=== PATIENT | female | born 1960 | race African-American/Black ===

== ENCOUNTER 2018-12-23 05:43 | Inpatient (IN) | payer OTHER ==
--- NOTE | 2018-12-19 13:32 | NUR ---
*-*- INSURANCE INFORMATION FOR CASE MANAGEMENT *-* OVER HAULER HELPER Kim Ricky [phone] NURSE LOOM TECHNICIAN NCM Assigned Jean Pierre Capellan RN [phone]
[~2018-12-23] VITALS: Ht 161.3 cm; Wt 92.2 kg
[2018-12-23] VITALS (17 sets, daily range): BP systolic 100–143; BP diastolic 55–78
[~2018-12-23 05:43] MED LIST: ASPIR 8181 MG ORAL; ATENOLOL50 MG ORAL; ATORVASTATIN CA40 MG ORAL; GLIPIZIDE5 MG ORAL; HUMULIN N100 UNIT/1 SUBQ; LOSARTAN POTASS50 MG ORAL; SPIRONOLACTONE100 MG ORAL
--- NOTE | 2018-12-23 06:20 | NUR ---
IV LR WAS STARTED BY MICHELLE HERRMANN RN. NO S/S OF INFILTRATION.
[2018-12-23] MEDS ORDERED: NS Irrig 2000ml IRRIG ONE (07:02)
[2018-12-23] MEDS ORDERED: Lidocaine 1% MPF 10mg/ml 5ml ONE ×4 (07:03→09:39)
[2018-12-23] MEDS ORDERED: Sodium Chloride 10ml vial INJ ONE ×2 (07:03→07:07)
[2018-12-23] MEDS ORDERED: LR 1000ml 1,000 ML IVLG SCH (07:06)
--- NOTE | 2018-12-23 07:06 | Pre-Procedure Note/Attestation ---
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 Indications for Procedure Pre-Operative Diagnosis: End Stage Degenerative Joint Disease Right Knee Attestation I attest that I discussed the nature of the procedure; its benefits; risks and complications; and alternatives (and the risks and benefits of such alternatives ), prior to the procedure, with the patient (or the patient's legal sales representative printing supplies). I attest that, if there was a reasonable possibility of needing a blood transfusion, the patient (or the patient's legal sales representative printing supplies) was given the [place] Department [employer] Services standardized written summary, pursuant to the Ez Joanne Blood Safety Act ([place] Health and Safety Code # 1645, as amended). I attest that I re-evaluated the patient just prior to the surgery and that there has been no change in the patient's H&P, except as documented below: Mateusz Matias Dec 23, 2018 07:06
--- NOTE | 2018-12-23 07:10 | Anethesia Preoperative Eval ---
Anesthesia Pre-op PMH/ROS General Date of Evaluation: Dec 23, 2018 Time of Evaluation: 07:24 Anesthesiologist: Donna ASA Score: ASA 3 Mallampati Score Class I : Soft palate, uvula, fauces, pillars visible Class II: Soft palate, uvula, fauces visible Class III: Soft palate, base of uvula visible Class IV: Only hard plate visible Mallampati Classification: Class II Surgeon: Dev Diagnosis: R Knee Pain Surgical Procedure: R Knee Total Arthroplasty Anesthesia History: none Family History: no anesthesia problems Allergies: Coded Allergies: CODEINE (Verified Adverse Reaction, Severe, severe abdominal discomfort, ) Medications: see eMAR Patient NPO?: Yes NPO Date: Dec 22, 2018 NPO Time: 0 Past Medical History Cardiovascular: Reports: HTN, other - HL Pulmonary: Reports: asthma Endocrine: Reports: DM Musculoskeletal/Integumentary: Reports: other - Osteomylitis Other: obesity - BMI 37 PSxH Narrative: R Ankle SX, GABRIELLA-BSO Anesthesia Pre-op Phys. Exam Physician Exam Last Vital Signs Date Time Temp Pulse Resp B/P (MAP) Pulse Ox O2 Delivery O2 Flow Rate FiO2 12/23/18 06:40 97.5 64 20 111/68 (82) 12/23/18 06:28 Room Air Constitutional: NAD Neurologic: CN 2-12 intact Cardiovascular: RRR Respiratory: CTA Gastrointestinal: S/NT/ND Airway Exam Mallampati Score: Class II MO: full ROM: full Teeth: missing, intact Anesthesia Pre-op A/P Risk Assessment & Plan Assessment: ASA 3 Plan: GA, SED, Spinal Status Change Before Surgery: No Pre-Antibiotics Dru Grams Ancef IV Given Within 1 Hr of Incision: Yes Time Given: 07:46 John Thompson MD Dec 23, 2018 07:10
[2018-12-23] MEDS ORDERED: NeoSporin Gu Irrig 1ml Amp IRRIG ONE (07:11)
[2018-12-23] MEDS ORDERED: Bacitracin 50000 Units Vial ONE (07:11)
[2018-12-23] MEDS ORDERED: fentaNYL 100 mcg/2 mL IV PRN (07:15)
[2018-12-23] MEDS ORDERED: Meperidine 50mg/ml Inj(FOR RIGORS ONLY) IVP PRN (07:15)
[2018-12-23] MEDS ORDERED: DiphenhydrAMINE 50mg/ml Inj IVP PRN (07:15)
[2018-12-23] MEDS ORDERED: Ketorolac 30mg Inj IV PRN ×2 (07:15)
[2018-12-23] MEDS ORDERED: Labetalol 5mg/ml 20ml vial IV PRN (07:15)
[2018-12-23] MEDS ORDERED: Metoclopramide 10mg/2ml Inj IVP PRN (07:15)
[2018-12-23] MEDS ORDERED: Midazolam 2mg/2ml Inj IVP PRN (07:15)
[2018-12-23] MEDS ORDERED: Atropine Sulfate 0.4mg/ml inj IVP PRN (07:15)
[2018-12-23] MEDS ORDERED: LORazepam Inj 2mg/ml 1ml IV PRN (07:15)
[2018-12-23] MEDS ORDERED: EPINEPHrine 1mg/1ml Amp ONE (07:18)
[2018-12-23] MEDS ORDERED: Duramorph PF 5mg/10ml amp ONE (07:19)
[2018-12-23] MEDS ORDERED: Bupivacaine 0.5% Inj 30 ml vial INJ ONE (07:19)
[2018-12-23] MEDS ORDERED: Propofol 1,000mg/ 100ml btl IV ONE (07:30)
[2018-12-23] MEDS ORDERED: LR 1000ml ONE (07:30)
--- NOTE | 2018-12-23 07:30 | Immediate Post-Op Evaluation ---
Immediate Post-Op Evalulation Immediate Post-Op Evalulation Procedure: R Knee Total Arthroplasty Date of Evaluation: Dec 23, 2018 Time of Evaluation: 10:27 IV Fluids: 1000 LR Blood Products: 0 Estimated Blood Loss: 75 Urinary Output: 150 Blood Pressure Systolic: 103 Blood Pressure Diastolic: 69 Pulse Rate: 74 Respiratory Rate: 16 O2 Sat by Pulse Oximetry: 100 Temperature (Fahrenheit): 97.2 Pain Score (1-10): 2 Nausea: No Vomiting: No Complications 0 Patient Status: awake, reacts, patent, extubated, none Hydration Status: adequate Dru Grams Ancef IV Given Within 1 Hr of Incision: Yes Time Given: 07:46 John Thompson MD Dec 23, 2018 07:30
[2018-12-23] MEDS ORDERED: Lidocaine 1% Plain 30 ml INJ ONE (07:49)
[2018-12-23] MEDS ORDERED: ePHEDrine 50mg/ml Inj ONE (07:57)
[2018-12-23] MEDS ORDERED: Naloxone 0.4mg/ml Inj IV PRN (10:00)
[2018-12-23] MEDS ORDERED: Milk of Magnesia 30ml Ud ORAL PRN (10:15)
[2018-12-23] MEDS ORDERED: HYDROcodone/Acetamin 7.5/325 tab ORAL PRN (10:15)
[2018-12-23] MEDS ORDERED: PCA HYDROmorphone 1mg/ml 30 ML IV PRN ×2 (10:15)
[2018-12-23] MEDS ORDERED: HYDROmorphone 1mg/ml Carpuject SUBQ PRN (10:15)
--- NOTE | 2018-12-23 10:18 | Operative Note - PDOC ---
Operative Note Operative Note Date of Operation/Procedure: Dec 23, 2018 Pre-op Diagnosis: End Stage Degenerative Joint Disease Right Knee Procedure: Right TKR Post-op Diagnosis: same as pre-op Operative Findings: consistent w/pre-op dx studies Surgeon: Dev Rehab Office Coordinator: JOSH Matias Anesthesiologist: Sidney Vera Anesthesia: other - spinal Specimen: yes Complications: none Condition: stable Estimated Blood Loss: minimal Drains: hemovac Implant(s) used?: Yes - Chary natural knee Mateusz Matias Dec 23, 2018 10:18
[2018-12-23] MEDS ORDERED: PCA Education Pamphlet MISC ONE (11:00)
[2018-12-23] MEDS ORDERED: Rate Change PCA 1 Each MISC PRN (11:00)
--- NOTE | 2018-12-23 11:35 | NUR ---
NURSE NOTES: Hemovac clamped per order. Will endorse to shift foreman nurse to un-clamp at 1935.
--- NOTE | 2018-12-23 11:45 | NUR ---
NURSE NOTES: Patient arrived to unit at 1135 accompanied by RN. Received report from Isabelle Cheung RN. Patient is asleep, but arousable to voice. No acute distress noted, RR even and unlabored. On 2L NC. Right knee dressing clean, dry, intact, ice pack on right knee. Patient reports she is having some numbness in lower extremities, but is able to move toes and can feel touch. Per report, patient was given spinal block during surgery. Bowden to gravity drainage, draining clean yellow urine. NUTRITION TEACHER settings checked and verified against order. Patient educated in use of NUTRITION TEACHER. Side rails upx3, bed low and locked, call light in reach. Will continue to monitor.
--- NOTE | 2018-12-23 12:00 | NUR ---
NURSE NOTES: Patient reporting she is nauseous, had emesis x1.
[2018-12-23 12:40] LABS: BASOPHILS % (AUTO) 0.7 % (0.0-2.0); EOSINOPHILS % (AUTO) 0.8 % (0.0-3.0); HEMATOCRIT 33.7 % (37.0-47.0); HEMOGLOBIN 11.2 G/DL (12.0-16.0); LYMPHOCYTES % (AUTO) 24.7 % (20.0-45.0); MEAN CORPUSCULAR VOLUME 79 FL (80-99); MONOCYTES % (AUTO) 7.1 % (1.0-10.0); NEUTROPHILS % (AUTO) 66.7 % (45.0-75.0); PLATELET COUNT 209 K/UL (150-450); RED BLOOD COUNT 4.25 M/UL (4.20-5.40); RED CELL DISTRIBUTION WIDTH 14.5 % (11.6-14.8); WHITE BLOOD COUNT 12.4 K/UL (4.8-10.8)
[2018-12-23] MEDS: Docusate 100mg cap ORAL SCH ×2 (13:00→18:00)
[2018-12-23] MEDS ORDERED: D5 1/2NS w/KCl 20mEq 1,000 ML IV SCH (13:00)
--- NOTE | 2018-12-23 14:21 | Diagnostic Imaging Report ---
Indications: Postoperative, status post knee replacement Technique: Two views of the right knee Comparison: None Findings: Two postoperative views of the right knee demonstrate total knee arthroplasty, good anatomic alignment of the prosthesis. There is a surgical drain in place. . There is postsurgical soft tissue air. Overlying skin mickie. Impression: Postoperative right knee, no unusual features.
--- NOTE | 2018-12-23 14:48 | NUR ---
NURSE NOTES: Noted patient started bleeding from back of knee following application of CPM. Called NILESH Matias and informed PA. Received orders and entered. Will carry out.
--- NOTE | 2018-12-23 15:44 | NUR ---
NURSE NOTES: Dressing re-inforced, right leg elevated and knee iced per order. CPM will be discontinued until tomorrow morning as ordered.
--- NOTE | 2018-12-23 15:55 | NUR ---
CASE MANAGEMENT:REVIEW 58 YR OLD FEMALE HERE FOR ELECTIVE SURGERY SI: END STAGE DEGENERATIVE RT KNEE JOINT DISEASE 97.5 64 20 111/68 100% ON RA WBC+12.4 IS: TO SURGERY FOR: RT TOTAL KNEE REPLACEMENT IV ANCEF Q8HRS IVF@75/HR : MED/SURG SURG STATUS 3 [facility]
--- NOTE | 2018-12-23 16:00 | NUR ---
NURSE NOTES: Patient had second episode of emesis. Is tolerating ice chips. Will keep on clear liquid diet for now.
--- NOTE | 2018-12-23 16:15 | Operative Note - Dictated ---
DATE OF OPERATION: 12/23/2018 SURGEON: Mateusz Méndez M.D. PANTS CLOSER: NILESH Kohler. ANESTHESIOLOGIST: John Thompson M.D. ANESTHESIA: General and spinal block. PREOPERATIVE DIAGNOSIS: Tricompartmental arthritis, posttraumatic right knee with varus weightbearing deformity due to complete loss of medial compartment joint space. POSTOPERATIVE DIAGNOSIS: Tricompartmental arthritis, posttraumatic right knee with varus weightbearing deformity due to complete loss of medial compartment joint space. OPERATIVE PROCEDURE: Resurfacing arthroplasty right knee using Chary natural knee with a 0 cemented all-polyethylene patella and a size 1 ingrowth femur and tibia with a congruent 9 mm polyethylene component on the tibial side. The patient also had a lateral release for patellar realignment. The patient was prepped and draped in the supine position. After induction of satisfactory anesthesia, first using a spinal and then with a light general, the patient was positioned so that the knee was in neutral by placing a bolster behind the right hip. A block was used to facilitate maintaining the knee in flexion during the procedure and a lateral block was used to prevent external rotation of the thigh at the hip level just below the trochanter. After the knee was positioned, it was prepped and draped freely, elevated, exsanguinated with an Esmarch bandage. A proximal tourniquet was inflated to 275 mmHg. A medial parapatellar incision was made approximately 6 inches in length beginning over the distal quads expanse extending along the medial patella and the medial border of the infrapatellar tendon as far as the tibial tuberosity. The extensor apparatus was exposed below the subcutaneous level. The medial capsular incision was made and the lateral retinaculum was released from about an inch above the patella to the inferior patella attachment at the tuberosity. The patella was skeletonized removing adherent synovium along its margins. The fat pad was trimmed and the attachment of the infrapatellar ligament was recessed to allow rotation of the entire extensor apparatus to visualize the articular surface of the patella. The posterior medial capsular ligaments were released including the semimembranosus tendinosis in the superficial medial collateral ligament. The patella was sized and a cutting block was placed. Minimal amount of the articular surface and slight amount of subchondral bone was then removed. The cut surface was planed and then sized for a 0 all-poly patella. Anchoring holes were made and a number 0 was templated with good fit and good contact at all surfaces. Tracking was smooth with flexion and extension. The femur was then addressed by drilling the distal intramedullary canal over a guide. The distal femoral alignment jig was then inserted with an outrigger to check for weightbearing alignment. A proper amount of distal femur was then chosen based on the position of the intramedullary good and the x-rays that have been taken and traced prior to the surgery. The distal cut was taken more medial and lateral femoral condyles but with a good flat surface remaining both medially and laterally. The second femoral jig was then used to make the chamfer anterior and posterior cuts and a chisel was used for the notch cut. A trial femur was then tapped into place with good fit on all surfaces both distal anterior and posterior. A size 1 femur was chosen. Bent-knee retractor was then placed behind the tibia and the tibia was subluxed forward exposing the entire articular surface. Remnants of the medial and lateral meniscus were completely removed. The PCL was recessed beyond the posterior margin of the tibia. Remnants of the ACL were also removed. The tibial jig was then inserted, first spike was placed and then the rest of the jig was aligned and fastened to the distal tibia. The platform was lowered slowly using an Rashid wing to reach a position where there was a minimal resection on the medial side with a much wider resection laterally to account for the varus deformity and the transformation to a valgus weightbearing knee. Once the cut was confirmed with the preoperative x-rays, tibial jig was pinned into place and the cut was then made. The central PEG and the peripheral holes were then drilled and trial tibia with a 9 millimeter polyethylene was then inserted and checked through range of motion, it was full extension with valgus alignment and smooth tracking and good stability to 90 degrees. At this point, the permanent tibial base plate was tapped into place. Two 35 millimeter APR screws were then placed and the polyethylene tapped into place with good fit, no gap. The femoral component was then inserted and it also had a good fit on all surfaces. Range of motion and stability were again checked and were quite good 0 to about 105 degrees with good femoral and tibial tracking. The patella was then cemented into place. It was an all-poly 7 millimeter. All excess cement was removed and the final cemented patella was then checked through a full range of motion. The tourniquet was released and the medial capsular components were then repaired with # 1 Vicryl sutures. The vastus medialis repositioned and the central quads tendon was also repaired. The lateral side was left open through the lateral release site and a medium Hemovac was left without suction in the defect created by the lateral release. The skin and subcutaneous tissue were closed separately and a bulky compression dressing was positioned. The patient returned to recovery room in good condition. Mateusz Méndez M.D. DR: Christiana JOB#: [id number] CC: BAM
[2018-12-23] MEDS: ceFAZolin sod 1 GM in D5W 55 ML IV SCH (16:30)
[2018-12-23] MEDS: GlipiZIDE 5mg tab ORAL SCH (17:06)
[2018-12-23] MEDS: NovoLOG Insulin Flexpen SUBQ SCH ×2 (17:06→20:48)
[2018-12-23] MEDS: Docusate Sod/Senna tab ORAL SCH (18:00)
[2018-12-23] MEDS: PCA shift volume MISC SCH (19:00)
--- NOTE | 2018-12-23 19:06 | NUR ---
NURSE NOTES: Informed Dr. Ramos that patient is still nauseous despite Zofran administration. MD gave orders for Reglan if Zofran ineffective. Also changed IVF to 1/2NS with 20mEq of potassium due to patient being diabetic. Orders entered, will endorse to next shift.
[2018-12-23] MEDS: 1/2NS w/KCl 20mEq 1000ml 1,000 ML IV SCH (19:15)
--- NOTE | 2018-12-23 19:49 | NUR ---
HAND-OFF: Report given to Maxx WADE. Patient is in stable condition. Un-clamped hemovac per order..
[2018-12-23] MEDS: Atorvastatin 80mg tab ORAL SCH (20:35)
[2018-12-24] VITALS: BP 138/73
[2018-12-24] MEDS: Metoclopramide 10mg/2ml Inj IVP PRN ×2 (00:38→12:41)
--- NOTE | 2018-12-24 03:24 | NUR ---
NURSE NOTES: Patient in bed awake and oriented. Dressing is clean and intact. Ice pack in place. Re-inforced use of BANK PRESIDENT for increasing pain. Nausea and vomiting still present, PRN zofran given. Hemovac currently unclamped. Needs attended. Due meds given. In stable condition.
[2018-12-24 04:00] VITALS: BP 133/75
[2018-12-24] MEDS: GlipiZIDE 5mg tab ORAL SCH ×2 (06:39→16:21)
[2018-12-24] MEDS: NovoLOG Insulin Flexpen SUBQ SCH ×4 (06:51→21:01)
[2018-12-24] MEDS: PCA shift volume MISC SCH ×2 (07:12→19:00)
--- NOTE | 2018-12-24 07:30 | NUR ---
NURSE NOTES: Patient lying in bed awake. Complain of pain 8/10 on surgical site and on BOX MAKER WOOD for pain management. Will continue to monitor. Skin intact and dry. Surgical dressing intact and dry. Hemovac patent and draining well. IV dressing intact and dry. Bed lowest position. Call light and BOX MAKER WOOD button within reach. Will continue to monitor.
[2018-12-24 08:00] VITALS: BP 133/73
[2018-12-24] MEDS: ceFAZolin sod 1 GM in D5W 55 ML IV SCH ×4 (08:03→16:13)
[2018-12-24] MEDS: 1/2NS w/KCl 20mEq 1000ml 1,000 ML IV SCH (08:04)
[2018-12-24 08:15] LABS: BASOPHILS % (AUTO) 0.4 % (0.0-2.0); HEMATOCRIT 29.7 % (37.0-47.0); HEMOGLOBIN 9.9 G/DL (12.0-16.0); LYMPHOCYTES % (AUTO) 10.3 % (20.0-45.0); MEAN CORPUSCULAR VOLUME 80 FL (80-99); NEUTROPHILS % (AUTO) 80.3 % (45.0-75.0); PLATELET COUNT 184 K/UL (150-450); RED CELL DISTRIBUTION WIDTH 14.8 % (11.6-14.8); WHITE BLOOD COUNT 14.3 K/UL (4.8-10.8)
--- NOTE | 2018-12-24 08:18 | NUR ---
P.T note: late entry 12/23/18 1530 CPM was set up for 0-60 deg. however noted bleeding from the incision seeping out of the surgical dressing . Notified RN. RN notified PA and suggested to stop the CPM. CMP removed immediately.
--- NOTE | 2018-12-24 08:30 | General Progress Note ---
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 incentive spirometry 2. Lovenox 3. PT evaluation and therapy 4. Hydration 5. Pain management 6. discharge once stable with outpatient follow up Subjective Allergies: Coded Allergies: CODEINE (Verified Adverse Reaction, Severe, severe abdominal discomfort, ) Subjective pain overnight asked to follow Objective Last 24 Hour Vital Signs Date Time Temp Pulse Resp B/P (MAP) Pulse Ox O2 Delivery O2 Flow Rate FiO2 12/24/18 04:00 98.2 94 18 133/75 (94) 95 12/24/18 00:00 98.0 80 17 138/73 (94) 95 12/24/18 00:00 16 12/23/18 21:00 Nasal Cannula 2.0 12/23/18 20:00 16 12/23/18 20:00 97.8 80 16 143/78 (99) 95 12/23/18 16:00 16 12/23/18 16:00 98.0 72 16 122/64 (83) 99 12/23/18 14:25 97.7 71 16 113/55 (74) 94 12/23/18 14:05 16 12/23/18 13:25 97.3 70 16 113/57 (75) 99 12/23/18 13:05 16 12/23/18 12:25 97.6 68 16 114/64 (81) 99 12/23/18 12:05 16 12/23/18 11:40 Nasal Cannula 2.0 12/23/18 11:35 16 12/23/18 11:35 97.6 67 16 111/63 (79) 99 12/23/18 11:30 64 16 112/67 100 Nasal Cannula 3 12/23/18 11:23 97.3 65 15 114/64 100 Nasal Cannula 3 12/23/18 11:21 97.2 12/23/18 11:21 97.2 12/23/18 11:20 15 12/23/18 11:15 63 14 110/68 100 Nasal Cannula 3 12/23/18 11:05 64 14 108/63 100 Nasal Cannula 3 12/23/18 10:55 66 13 100/60 100 Nasal Cannula 3 12/23/18 10:45 67 16 125/78 100 Nasal Cannula 3 12/23/18 10:35 65 14 121/74 100 Nasal Cannula 3 12/23/18 10:25 69 13 110/72 100 Nasal Cannula 3 12/23/18 10:20 72 15 111/69 100 Nasal Cannula 3 12/23/18 10:16 97.2 81 14 103/69 100 Simple Mask 6 12/23/18 10:12 74 16 100 Intake and Output 12/23/18 12/24/18 18:59 06:59 Intake Total 1720 ml 1185 ml Output Total 875 ml 845 ml Balance 845 ml 340 ml Intake Oral 120 ml 360 ml IV Total 1600 ml 825 ml Output Urine Total 700 ml 725 ml Emesis 150 ml Drainage Total 0 ml 120 ml Estimated Blood Loss 25 ml # Voids 1 Laboratory Tests 12/23/18 12:15: White Blood Count 12.4H, Red Blood Count 4.25, Hemoglobin 11.2L, Hematocrit 33.7L, Mean Corpuscular Volume 79L, Mean Corpuscular Hemoglobin 26.4L, Mean Corpuscular Hemoglobin Concent 33.3, Red Cell Distribution Width 14.5, Platelet Count 209, Mean Platelet Volume 7.2, Neutrophils (%) (Auto) 66.7, Lymphocytes (% ) (Auto) 24.7, Monocytes (%) (Auto) 7.1, Eosinophils (%) (Auto) 0.8, Basophils ( %) (Auto) 0.7 12/24/18 06:17: White Blood Count 14.3H, Red Blood Count 3.70L, Hemoglobin 9.9L, Hematocrit 29.7L, Mean Corpuscular Volume 80, Mean Corpuscular Hemoglobin 26.8L, Mean Corpuscular Hemoglobin Concent 33.4, Red Cell Distribution Width 14.8, Platelet Count 184, Mean Platelet Volume 7.2, Neutrophils (%) (Auto) 80.3H, Lymphocytes ( %) (Auto) 10.3L, Monocytes (%) (Auto) 9.0, Eosinophils (%) (Auto) 0.0, Basophils (%) (Auto) 0.4 Height (Feet): 5 Height (Inches): 3.50 Weight (Pounds): 206 Objective WDWN NAD clear breath sounds bilaterally without rhonchi or wheeze [id number] without MRG NABS nontender no HSM no CCE nonfocal Ammon Ramos MD Dec 24, 2018 08:30
[2018-12-24] MEDS: Spironolactone 50mg tab ORAL SCH (08:54)
[2018-12-24] MEDS: Losartan 50mg tab ORAL SCH (08:54)
[2018-12-24] MEDS: Enoxaparin 40mg Inj SUBQ SCH (08:59)
[2018-12-24] MEDS: Docusate 100mg cap ORAL SCH ×3 (09:00→17:15)
[2018-12-24] MEDS: Docusate Sod/Senna tab ORAL SCH ×2 (09:00→17:15)
--- NOTE | 2018-12-24 09:28 | General Surgery Progress Note ---
General Surgery-Progress Note Subjective Procedure Performed Right TKR Symptoms: pain increased Objective Last 24 Hour Vital Signs Date Time Temp Pulse Resp B/P (MAP) Pulse Ox O2 Delivery O2 Flow Rate FiO2 12/24/18 08:54 133/73 12/24/18 08:54 98 133/73 12/24/18 08:00 98.6 98 18 133/73 (93) 95 12/24/18 04:00 98.2 94 18 133/75 (94) 95 12/24/18 00:00 98.0 80 17 138/73 (94) 95 12/24/18 00:00 16 12/23/18 21:00 Nasal Cannula 2.0 12/23/18 20:00 16 12/23/18 20:00 97.8 80 16 143/78 (99) 95 12/23/18 16:00 16 12/23/18 16:00 98.0 72 16 122/64 (83) 99 12/23/18 14:25 97.7 71 16 113/55 (74) 94 12/23/18 14:05 16 12/23/18 13:25 97.3 70 16 113/57 (75) 99 12/23/18 13:05 16 12/23/18 12:25 97.6 68 16 114/64 (81) 99 12/23/18 12:05 16 12/23/18 11:40 Nasal Cannula 2.0 12/23/18 11:35 16 12/23/18 11:35 97.6 67 16 111/63 (79) 99 12/23/18 11:30 64 16 112/67 100 Nasal Cannula 3 12/23/18 11:23 97.3 65 15 114/64 100 Nasal Cannula 3 12/23/18 11:21 97.2 12/23/18 11:21 97.2 12/23/18 11:20 15 12/23/18 11:15 63 14 110/68 100 Nasal Cannula 3 12/23/18 11:05 64 14 108/63 100 Nasal Cannula 3 12/23/18 10:55 66 13 100/60 100 Nasal Cannula 3 12/23/18 10:45 67 16 125/78 100 Nasal Cannula 3 12/23/18 10:35 65 14 121/74 100 Nasal Cannula 3 12/23/18 10:25 69 13 110/72 100 Nasal Cannula 3 12/23/18 10:20 72 15 111/69 100 Nasal Cannula 3 12/23/18 10:16 97.2 81 14 103/69 100 Simple Mask 6 12/23/18 10:12 74 16 100 I&O Intake and Output 12/23/18 12/24/18 18:59 06:59 Intake Total 1720 ml 1185 ml Output Total 875 ml 845 ml Balance 845 ml 340 ml Intake Oral 120 ml 360 ml IV Total 1600 ml 825 ml Output Urine Total 700 ml 725 ml Emesis 150 ml Drainage Total 0 ml 120 ml Estimated Blood Loss 25 ml # Voids 1 Dressing: dry Wound: clean Drains: hemovac Extremities: pulses Laboratory Tests Test 12/23/18 12:15 12/24/18 06:17 White Blood Count 12.4 K/UL (4.8-10.8) H 14.3 K/UL (4.8-10.8) H Red Blood Count 4.25 M/UL (4.20-5.40) 3.70 M/UL (4.20-5.40) L Hemoglobin 11.2 G/DL (12.0-16.0) L 9.9 G/DL (12.0-16.0) L Hematocrit 33.7 % (37.0-47.0) L 29.7 % (37.0-47.0) L Mean Corpuscular Volume 79 FL (80-99) L 80 FL (80-99) Mean Corpuscular Hemoglobin 26.4 PG (27.0-31.0) L 26.8 PG (27.0-31.0) L Mean Corpuscular Hemoglobin Concent 33.3 G/DL (32.0-36.0) 33.4 G/DL (32.0-36.0) Red Cell Distribution Width 14.5 % (11.6-14.8) 14.8 % (11.6-14.8) Platelet Count 209 K/UL (150-450) 184 K/UL (150-450) Mean Platelet Volume 7.2 FL (6.5-10.1) 7.2 FL (6.5-10.1) Neutrophils (%) (Auto) 66.7 % (45.0-75.0) 80.3 % (45.0-75.0) H Lymphocytes (%) (Auto) 24.7 % (20.0-45.0) 10.3 % (20.0-45.0) L Monocytes (%) (Auto) 7.1 % (1.0-10.0) 9.0 % (1.0-10.0) Eosinophils (%) (Auto) 0.8 % (0.0-3.0) 0.0 % (0.0-3.0) Basophils (%) (Auto) 0.7 % (0.0-2.0) 0.4 % (0.0-2.0) Additional Comments Dressing bled through last evening and was changed. Now dry. Pulses present in Right low les, withgood color and cap refill. Assessment Additional Comments Dr. Rachel matthew. Physical therapy in process. Mateusz Matias Dec 24, 2018 09:28
--- NOTE | 2018-12-24 09:29 | 48 Hour Post Anesthesia Eval ---
Post Anesthesia Evaluation Procedure: R Knee Total Arthroplasty Date of Evaluation: Dec 24, 2018 Time of Evaluation: 09:27 Blood Pressure Systolic: 133 0: 73 Pulse Rate: 98 Respiratory Rate: 18 Temperature (Fahrenheit): 98.6 O2 Sat by Pulse Oximetry: 95 Airway: patent Nausea: No Vomiting: No Pain Intensity: 3 Hydration Status: adequate Cardiopulmonary Status: Stable Mental Status/LOC: patient returned to baseline Follow-up Care/Observations: 0 Post-Anesthesia Complications: 0 Follow-up care needed: ready to discharge John Thompson MD Dec 24, 2018 09:29
--- NOTE | 2018-12-24 10:00 | NUR ---
NURSE NOTES: Patient voided yellow urine. No complain of pain or discomfort at this time. Patient tolerated activity well. Will continue to monitor.
[2018-12-24 12:00] VITALS: BP 142/72
--- NOTE | 2018-12-24 13:40 | NUR ---
CASE MANAGEMENT:REVIEW 12/24/18 SI: POD #1 99.8 87 18 142/72 95% on ra WBC+14.3 H/H-9.9/29.7 IS: IV ANCEF Q8HRS ATENOLOL PO QD COZAAR PO QD ALDACTONE PO QD LOVENOX SQ QD : MED/SURG STATUS 3 [facility]
--- NOTE | 2018-12-24 13:57 | NUR ---
P.T Note: late entry 0945 P.T evaluation completed and treatment initiated per TKR protocol. Please refer to P.T evaluation for current functional status. Pt is alert, O x 4, pleasant and cooperative. Pt c/o not feeling well due R knee pain 5/10 , feeling fatigued and lack of sleep. Pt currently require MIN A X 1 for bed mobility, transfers and gait using the FWW. Skilled P.T service is warranted to improve ROM and strength of the R knee to increase mobility independence and safety following R TKR surgery. Pt is highly motivated to get better however one of her main concerns is that she lives in an apartment with 32 steps to get into her apt unit and would like to go to rehab facility prior to going home at [facility]. Due to home situation and safety concern , P.T recommend SNF for short term rehab VS home with P.T depending on progress at [facility]. Thank you for this referral.
[2018-12-24 16:00] VITALS: BP 140/70
--- NOTE | 2018-12-24 19:30 | NUR ---
HAND-OFF: Report given to Layne WADE and Maxx WADE. Patient in stable condition.
[2018-12-24 20:00] VITALS: BP 142/65
[2018-12-24] MEDS: Atorvastatin 80mg tab ORAL SCH (21:00)
[2018-12-25] VITALS: BP 139/79
[2018-12-25] MEDS: ceFAZolin sod 1 GM in D5W 55 ML IV SCH ×3 (01:07→15:44)
[2018-12-25 04:00] VITALS: BP 146/78
[2018-12-25] MEDS: GlipiZIDE 5mg tab ORAL SCH ×2 (05:47→16:49)
[2018-12-25] MEDS: NovoLOG Insulin Flexpen SUBQ SCH ×4 (05:58→21:30)
[2018-12-25] MEDS: PCA shift volume MISC SCH ×2 (07:00→19:29)
[2018-12-25 07:14] LABS: BASOPHILS % (AUTO) 0.5 % (0.0-2.0); EOSINOPHILS % (AUTO) 0.1 % (0.0-3.0); HEMATOCRIT 27.7 % (37.0-47.0); HEMOGLOBIN 9.3 G/DL (12.0-16.0); LYMPHOCYTES % (AUTO) 14.1 % (20.0-45.0); MEAN CORPUSCULAR VOLUME 78 FL (80-99); MONOCYTES % (AUTO) 10.8 % (1.0-10.0); NEUTROPHILS % (AUTO) 74.4 % (45.0-75.0); PLATELET COUNT 167 K/UL (150-450); RED BLOOD COUNT 3.54 M/UL (4.20-5.40); RED CELL DISTRIBUTION WIDTH 13.8 % (11.6-14.8)
--- NOTE | 2018-12-25 07:53 | NUR ---
NURSE NOTES: awake. no c/o pain. in no distress. Addendum: 12/25/18 at 0803 by KAHLIL JESUS RN AWAKE/ALERT. RT KNEE DRESSING DRY AND INTACT. WITH GOOD PEDAL; PULSE. PAIN SCALE 8/10. ENCOURAGE DTO PUSH PAIN BUTTON NEEDED FOR PAIN. IN NO ACUTE DISTRESS.
[2018-12-25 08:00] VITALS: BP 147/79
[2018-12-25] MEDS: Docusate 100mg cap ORAL SCH ×3 (08:44→18:03)
[2018-12-25] MEDS: Spironolactone 50mg tab ORAL SCH (08:45)
[2018-12-25] MEDS: Docusate Sod/Senna tab ORAL SCH ×2 (08:45→18:03)
[2018-12-25] MEDS: Losartan 50mg tab ORAL SCH (08:46)
[2018-12-25] MEDS: Enoxaparin 40mg Inj SUBQ SCH (08:50)
[2018-12-25] MEDS ORDERED: PCA HYDROmorphone 1mg/ml 30 ML IV PRN (09:00)
--- NOTE | 2018-12-25 09:11 | General Progress Note ---
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 incentive spirometry 2. Lovenox 3. PT evaluation and therapy 4. Hydration 5. Pain management 6. discharge to rehab Subjective Allergies: Coded Allergies: CODEINE (Verified Adverse Reaction, Severe, severe abdominal discomfort, ) Subjective pain overnight asked to follow Objective Last 24 Hour Vital Signs Date Time Temp Pulse Resp B/P (MAP) Pulse Ox O2 Delivery O2 Flow Rate FiO2 12/25/18 08:46 147/79 12/25/18 08:45 99 147/79 12/25/18 04:00 18 12/25/18 04:00 99.1 103 18 146/78 (100) 92 12/25/18 00:00 18 12/25/18 00:00 98.4 95 17 139/79 (99) 93 12/24/18 21:02 18 12/24/18 21:00 Room Air 12/24/18 20:00 99.3 96 16 142/65 (90) 94 12/24/18 20:00 16 12/24/18 16:00 18 12/24/18 16:00 98.9 94 18 140/70 (93) 94 12/24/18 12:00 18 12/24/18 12:00 99.8 87 18 142/72 (95) 95 12/24/18 09:29 98 18 95 Intake and Output 12/24/18 12/25/18 19:00 07:00 Intake Total 360 ml 360 ml Output Total 160 ml Balance 200 ml 360 ml Intake Oral 360 ml 360 ml Drainage Total 160 ml # Voids 3 2 Laboratory Tests 12/25/18 05:40: White Blood Count 16.0H, Red Blood Count 3.54L, Hemoglobin 9.3L, Hematocrit 27.7L, Mean Corpuscular Volume 78L, Mean Corpuscular Hemoglobin 26.4L, Mean Corpuscular Hemoglobin Concent 33.7, Red Cell Distribution Width 13.8, Platelet Count 167, Mean Platelet Volume 7.2, Neutrophils (%) (Auto) 74.4, Lymphocytes (% ) (Auto) 14.1L, Monocytes (%) (Auto) 10.8H, Eosinophils (%) (Auto) 0.1, Basophils (%) (Auto) 0.5 Height (Feet): 5 Height (Inches): 3.50 Weight (Pounds): 203 Objective WDWN NAD clear breath sounds bilaterally without rhonchi or wheeze [id number] without MRG NABS nontender no HSM no CCE nonfocal Ammon Ramos MD December 25, 2018 09:11
[2018-12-25] MEDS ORDERED: Rate Change PCA 1 Each MISC PRN (09:30)
--- NOTE | 2018-12-25 09:47 | NUR ---
NURSE NOTES: Sonia GALLOWAY HERE TO SEE PT.REMOVE HEMOVAC. DRESSING CHANGED. APLLIED 4X4,ABD AND BROOKLYNN WRAP,SECURED WITH PAPER TAPE.
[2018-12-25] MEDS ORDERED: HYDROmorphone 1mg/ml Carpuject SUBQ PRN (10:00)
[2018-12-25] MEDS ORDERED: HYDROcodone/Acetamin 7.5/325 tab ORAL PRN (10:15)
[2018-12-25 12:00] VITALS: BP 136/75
--- NOTE | 2018-12-25 12:19 | General Surgery Progress Note ---
General Surgery-Progress Note Subjective Procedure Performed Right TKR Symptoms: improved Objective Last 24 Hour Vital Signs Date Time Temp Pulse Resp B/P (MAP) Pulse Ox O2 Delivery O2 Flow Rate FiO2 12/25/18 09:00 Room Air 12/25/18 08:46 147/79 12/25/18 08:45 99 147/79 12/25/18 08:00 98.8 99 17 147/79 (101) 92 12/25/18 08:00 18 12/25/18 04:00 18 12/25/18 04:00 99.1 103 18 146/78 (100) 92 12/25/18 00:00 18 12/25/18 00:00 98.4 95 17 139/79 (99) 93 12/24/18 21:02 18 12/24/18 21:00 Room Air 12/24/18 20:00 99.3 96 16 142/65 (90) 94 12/24/18 20:00 16 12/24/18 16:00 18 12/24/18 16:00 98.9 94 18 140/70 (93) 94 I&O Intake and Output 12/24/18 12/25/18 18:59 06:59 Intake Total 360 ml 360 ml Output Total 160 ml Balance 200 ml 360 ml Intake Oral 360 ml 360 ml Drainage Total 160 ml # Voids 3 2 Dressing: dry Wound: clean Drains: hemovac Laboratory Tests Test 12/25/18 05:40 White Blood Count 16.0 K/UL (4.8-10.8) H Red Blood Count 3.54 M/UL (4.20-5.40) L Hemoglobin 9.3 G/DL (12.0-16.0) L Hematocrit 27.7 % (37.0-47.0) L Mean Corpuscular Volume 78 FL (80-99) L Mean Corpuscular Hemoglobin 26.4 PG (27.0-31.0) L Mean Corpuscular Hemoglobin Concent 33.7 G/DL (32.0-36.0) Red Cell Distribution Width 13.8 % (11.6-14.8) Platelet Count 167 K/UL (150-450) Mean Platelet Volume 7.2 FL (6.5-10.1) Neutrophils (%) (Auto) 74.4 % (45.0-75.0) Lymphocytes (%) (Auto) 14.1 % (20.0-45.0) L Monocytes (%) (Auto) 10.8 % (1.0-10.0) H Eosinophils (%) (Auto) 0.1 % (0.0-3.0) Basophils (%) (Auto) 0.5 % (0.0-2.0) Additional Comments Drain output 60 cc / 24 hours >> drain removed, dressing changed. Pulses present , good color, cap fill and sensation. Assessment Additional Comments Dr. Ramos following. Patient approved for rehabilitation and may be able to move as early as December 27 , depending on PT / OT prohress. Mateusz Matias December 25, 2018 12:19
[2018-12-25 16:00] VITALS: BP 130/72
--- NOTE | 2018-12-25 16:17 | NUR ---
CASE MANAGEMENT:REVIEW 12/25/18 SI: POD #2 98.0 95 17 130/72 94% ON RA WBC+16.0 H/H-9.3/27.7 IS: IV ANCEF Q8HRS ATENOLOL PO QD COZAAR PO QD ALDACTONE PO QD LOVENOX SQ QD ACOUSTICAL ENGINEER DILAUDID : MED/SURG STATUS 3 EAST
--- NOTE | 2018-12-25 17:00 | NUR ---
NURSE NOTES: IV INFILTRATED AND LEAKING, DISCONTINUED. TRIED TO RESTART IV TWICE BUT NO LUCK. WILL TRY AGAIN LATER.
--- NOTE | 2018-12-25 19:34 | NUR ---
HAND-OFF: Report given to gabe ingram rn.
--- NOTE | 2018-12-25 19:45 | NUR ---
NURSE NOTES: Pt lying in bed w/bed in lowest position and call light within reach. Pt A&Ox4, VSS, and in no apparent distress. No IV site at this time; will attempt to start IV. Dressing C/D/I; pt refusing to have SCDs on left leg and/or to have rolled towel under right ankle. Will continue to monitor.
[2018-12-25 20:00] VITALS: BP 155/82
[2018-12-25] MEDS: Atorvastatin 80mg tab ORAL SCH (20:38)
[2018-12-26] VITALS: BP 128/71
[2018-12-26 04:00] VITALS: BP 151/76
[2018-12-26] MEDS: GlipiZIDE 5mg tab ORAL SCH ×2 (06:09→16:45)
[2018-12-26] MEDS: NovoLOG Insulin Flexpen SUBQ SCH ×4 (06:14→21:10)
[2018-12-26 06:58] LABS: BASOPHILS % (AUTO) 0.6 % (0.0-2.0); EOSINOPHILS % (AUTO) 0.4 % (0.0-3.0); HEMATOCRIT 26.9 % (37.0-47.0); HEMOGLOBIN 8.9 G/DL (12.0-16.0); LYMPHOCYTES % (AUTO) 16.6 % (20.0-45.0); MEAN CORPUSCULAR VOLUME 80 FL (80-99); MONOCYTES % (AUTO) 9.7 % (1.0-10.0); NEUTROPHILS % (AUTO) 72.7 % (45.0-75.0); PLATELET COUNT 161 K/UL (150-450); RED BLOOD COUNT 3.37 M/UL (4.20-5.40); WHITE BLOOD COUNT 16.5 K/UL (4.8-10.8)
[2018-12-26] MEDS: PCA shift volume MISC SCH ×2 (07:10→19:23)
--- NOTE | 2018-12-26 07:10 | NUR ---
HAND-OFF: Report given to SHERI Peguero.
--- NOTE | 2018-12-26 07:51 | NUR ---
NURSE NOTES: AWAKE/ALERT. PAIN SCALE 8/10.RT KNEE DRESSING DRY AND INTACT.WITH GOOD PEDAL PULSE. IN NO DISTRESS.
[2018-12-26 08:00] VITALS: BP 140/69
--- NOTE | 2018-12-26 08:32 | General Progress Note ---
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 incentive spirometry 2. Lovenox 3. PT evaluation and therapy 4. Hydration 5. Pain management 6. discharge to rehab pending acceptance Subjective Allergies: Coded Allergies: CODEINE (Verified Adverse Reaction, Severe, severe abdominal discomfort, ) Subjective pain overnight asked to follow Objective Last 24 Hour Vital Signs Date Time Temp Pulse Resp B/P (MAP) Pulse Ox O2 Delivery O2 Flow Rate FiO2 12/26/18 08:00 18 12/26/18 08:00 98.4 96 21 140/69 (92) 96 12/26/18 04:00 18 12/26/18 04:00 98.1 98 18 151/76 (101) 94 12/26/18 00:00 18 12/26/18 00:00 98.2 110 18 128/71 (90) 95 12/25/18 21:00 Room Air 12/25/18 20:00 98.3 107 18 155/82 (106) 94 12/25/18 20:00 18 12/25/18 16:00 17 12/25/18 16:00 98.0 95 17 130/72 (91) 94 12/25/18 13:34 98.8 12/25/18 13:04 18 12/25/18 13:04 18 12/25/18 12:00 98.7 89 17 136/75 (95) 95 12/25/18 12:00 18 12/25/18 09:00 Room Air 12/25/18 08:46 147/79 12/25/18 08:45 99 147/79 Intake and Output 12/25/18 12/26/18 19:00 07:00 Intake Total 750 ml 236 ml Output Total 75 ml Balance 675 ml 236 ml Intake Oral 750 ml Other 236 ml Drainage Total 75 ml # Voids 4 4 Laboratory Tests 12/26/18 05:35: White Blood Count 16.5H, Red Blood Count 3.37L, Hemoglobin 8.9L, Hematocrit 26.9L, Mean Corpuscular Volume 80, Mean Corpuscular Hemoglobin 26.5L, Mean Corpuscular Hemoglobin Concent 33.3, Red Cell Distribution Width 14.0, Platelet Count 161, Mean Platelet Volume 6.9, Neutrophils (%) (Auto) 72.7, Lymphocytes (% ) (Auto) 16.6L, Monocytes (%) (Auto) 9.7, Eosinophils (%) (Auto) 0.4, Basophils (%) (Auto) 0.6 Height (Feet): 5 Height (Inches): 3.50 Weight (Pounds): 203 Objective WDWN NAD clear breath sounds bilaterally without rhonchi or wheeze [id number] without MRG NABS nontender no HSM no CCE nonfocal Ammon Ramos MD December 26, 2018 08:32
[2018-12-26] MEDS: Spironolactone 50mg tab ORAL SCH (08:47)
[2018-12-26] MEDS: Docusate Sod/Senna tab ORAL SCH ×2 (08:47→17:32)
[2018-12-26] MEDS: Losartan 50mg tab ORAL SCH (08:48)
[2018-12-26] MEDS: Docusate 100mg cap ORAL SCH ×3 (08:49→17:32)
[2018-12-26] MEDS: Enoxaparin 40mg Inj SUBQ SCH (08:53)
--- NOTE | 2018-12-26 08:59 | General Surgery Progress Note ---
General Surgery-Progress Note Subjective Procedure Performed Right TKR Symptoms: improved Objective Last 24 Hour Vital Signs Date Time Temp Pulse Resp B/P (MAP) Pulse Ox O2 Delivery O2 Flow Rate FiO2 12/26/18 08:48 140/69 12/26/18 08:48 96 140/69 12/26/18 08:00 18 12/26/18 08:00 98.4 96 21 140/69 (92) 96 12/26/18 04:00 18 12/26/18 04:00 98.1 98 18 151/76 (101) 94 12/26/18 00:00 18 12/26/18 00:00 98.2 110 18 128/71 (90) 95 12/25/18 21:00 Room Air 12/25/18 20:00 98.3 107 18 155/82 (106) 94 12/25/18 20:00 18 12/25/18 16:00 17 12/25/18 16:00 98.0 95 17 130/72 (91) 94 12/25/18 13:34 98.8 12/25/18 13:04 18 12/25/18 13:04 18 12/25/18 12:00 98.7 89 17 136/75 (95) 95 12/25/18 12:00 18 12/25/18 09:00 Room Air I&O Intake and Output 12/25/18 12/26/18 19:00 07:00 Intake Total 750 ml 236 ml Output Total 75 ml Balance 675 ml 236 ml Intake Oral 750 ml Other 236 ml Drainage Total 75 ml # Voids 4 4 Dressing: dry Wound: clean Drains: none Laboratory Tests Test 12/26/18 05:35 White Blood Count 16.5 K/UL (4.8-10.8) H Red Blood Count 3.37 M/UL (4.20-5.40) L Hemoglobin 8.9 G/DL (12.0-16.0) L Hematocrit 26.9 % (37.0-47.0) L Mean Corpuscular Volume 80 FL (80-99) Mean Corpuscular Hemoglobin 26.5 PG (27.0-31.0) L Mean Corpuscular Hemoglobin Concent 33.3 G/DL (32.0-36.0) Red Cell Distribution Width 14.0 % (11.6-14.8) Platelet Count 161 K/UL (150-450) Mean Platelet Volume 6.9 FL (6.5-10.1) Neutrophils (%) (Auto) 72.7 % (45.0-75.0) Lymphocytes (%) (Auto) 16.6 % (20.0-45.0) L Monocytes (%) (Auto) 9.7 % (1.0-10.0) Eosinophils (%) (Auto) 0.4 % (0.0-3.0) Basophils (%) (Auto) 0.6 % (0.0-2.0) Additional Comments Good circulation in Right low leg. Wound Clean and dry. Patient making good progress with Physical Therapy. Transfer to rehab as early as tomorrow 12/27. Dr. Rachel romero. Mateusz Matias December 26, 2018 08:59
--- NOTE | 2018-12-26 11:40 | NUR ---
NURSE NOTES: Changed dressings on R leg, elevated on pillow and applied ice. Addendum: 12/27/18 at 0403 by Karissa Hennessy RN Wrong time entry.
[2018-12-26 12:00] VITALS: BP 138/67
--- NOTE | 2018-12-26 12:07 | NUR ---
CASE MANAGEMENT:REVIEW 12/26/18 SI: POD #3 S/P RT KNEE 98.4 96 21 140/69 96% ON RA WBC+16.5 H/H-8.9/26.9 IS: PSYCHOLOGIST COUNSELING DILAUDID ATENOLOL PO QD COZAAR PO QD ALDACTONE PO QD LOVENOX SQ QD : MED/SURG STATUS 3 EAST PLAN: PLAN IS FOR PATIENT TO GO TO REHAB UPON DISCHARGE
--- NOTE | 2018-12-26 12:13 | NUR ---
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
[2018-12-26 16:00] VITALS: BP 145/63
--- NOTE | 2018-12-26 19:02 | NUR ---
NURSE NOTES: QUIET IN BED. CONDITION STABLE. IN NO DISTRESS.
--- NOTE | 2018-12-26 19:30 | NUR ---
NURSE NOTES: Received pt from Cem RN. Pt is in bed, watching TV, AAO X4. Pt is on room air, unlabored breathing, VSS, no s/s of distress. Dressing on R knee is dry and intact. Patent L AC 22G. Bed is locked at the lowest position, bed alarms active, side rails up x2, and call light is within reach. Will continue to monitor.
--- NOTE | 2018-12-26 19:35 | NUR ---
HAND-OFF: Report given to juan jose bernal rn.
[2018-12-26 20:00] VITALS: BP 144/73
[2018-12-26] MEDS: Atorvastatin 80mg tab ORAL SCH (21:03)
--- NOTE | 2018-12-26 23:40 | NUR ---
NURSE NOTES: Changed dressings on R leg, elevated on pillow and applied ice.
[2018-12-27] VITALS: BP 147/86
[2018-12-27 04:00] VITALS: BP 135/75
[2018-12-27] MEDS: GlipiZIDE 5mg tab ORAL SCH ×2 (05:32→16:10)
[2018-12-27] MEDS: NovoLOG Insulin Flexpen SUBQ SCH ×4 (05:36→21:04)
[2018-12-27] MEDS: PCA shift volume MISC SCH ×2 (07:00→19:00)
--- NOTE | 2018-12-27 07:33 | NUR ---
HAND-OFF: Report given to SHERI LEYVA. Patient is in stable condition, no s/s of distress.
--- NOTE | 2018-12-27 07:35 | NUR ---
NURSE NOTES: Patient sitting in bed awake. No complain of pain or distress at this time. 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 Skin intact and dry. Surgical dressing intact and dry. IV dressing intact and dry. Bed lowest position. Call light within reach. Will continue to monitor.
[2018-12-27 08:00] VITALS: BP 148/82
[2018-12-27] MEDS: Docusate Sod/Senna tab ORAL SCH ×2 (08:42→17:25)
[2018-12-27] MEDS: Docusate 100mg cap ORAL SCH ×3 (08:42→17:25)
[2018-12-27] MEDS: Losartan 50mg tab ORAL SCH (08:43)
[2018-12-27] MEDS: Spironolactone 50mg tab ORAL SCH (08:43)
[2018-12-27] MEDS: Enoxaparin 40mg Inj SUBQ SCH (08:47)
[2018-12-27] MEDS ORDERED: PCA HYDROmorphone 1mg/ml 30 ML IV PRN (09:00)
[2018-12-27] MEDS ORDERED: Rate Change PCA 1 Each MISC PRN (09:00)
[2018-12-27 12:00] VITALS: BP 119/80
--- NOTE | 2018-12-27 12:15 | NUR ---
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 SHE SAID SHE WOULD F/U AND CALL THIS TEACHER INSTRUMENTAL BACK
--- NOTE | 2018-12-27 14:23 | NUR ---
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
[2018-12-27 16:00] VITALS: BP 124/56
--- NOTE | 2018-12-27 16:59 | General Progress Note ---
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 incentive spirometry 2. Lovenox 3. PT evaluation and therapy 4. Hydration 5. Pain management 6. awaiting placement Subjective Allergies: Coded Allergies: CODEINE (Verified Adverse Reaction, Severe, severe abdominal discomfort, ) Subjective still with some pain overnight dc planning noted Objective Last 24 Hour Vital Signs Date Time Temp Pulse Resp B/P (MAP) Pulse Ox O2 Delivery O2 Flow Rate FiO2 12/27/18 16:01 19 12/27/18 16:00 98.7 86 19 124/56 (78) 95 12/27/18 16:00 19 12/27/18 12:00 98.9 83 18 119/80 (93) 97 12/27/18 12:00 18 12/27/18 09:00 Room Air 12/27/18 08:43 148/82 12/27/18 08:42 94 148/82 12/27/18 08:00 20 12/27/18 08:00 98.0 94 20 148/82 (104) 95 12/27/18 04:00 20 12/27/18 04:00 98.3 95 20 135/75 (95) 94 12/27/18 00:00 20 12/27/18 00:00 99.1 88 20 147/86 (106) 94 12/26/18 21:00 Room Air 12/26/18 20:00 20 12/26/18 20:00 98.1 95 20 144/73 (96) 95 Intake and Output 12/26/18 12/27/18 18:59 06:59 Intake Total 830 ml 240 ml Balance 830 ml 240 ml Intake Oral 830 ml 240 ml # Voids 3 4 Height (Feet): 5 Height (Inches): 3.50 Weight (Pounds): 203 Objective WDWN NAD clear breath sounds bilaterally without rhonchi or wheeze [id number] without MRG NABS nontender no HSM no CCE nonfocal Ammon Ramos MD December 27, 2018 16:59
--- NOTE | 2018-12-27 19:30 | NUR ---
HAND-OFF: Report given to Enedina WADE. Patient in stable condition.
--- NOTE | 2018-12-27 19:43 | NUR ---
NURSE NOTES: PT IN BED. ON RA, NO SOB, NO ACUTE DISTRESS. S/P R TOTAL KNEE REPLACEMENT, DRESSING INTACT, DRY, CLEAN ON R KNEE. 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 BED IN LOWEST POSITION, LOCKED, ALARMS ON. CALL LIGHT IN REACH.
[2018-12-27 20:00] VITALS: BP 155/68
[2018-12-27] MEDS: Atorvastatin 80mg tab ORAL SCH (20:34)
[2018-12-28] VITALS: BP 139/81
[2018-12-28 04:00] VITALS: BP 142/72
[2018-12-28] MEDS: NovoLOG Insulin Flexpen SUBQ SCH ×4 (06:26→21:22)
[2018-12-28] MEDS: GlipiZIDE 5mg tab ORAL SCH ×2 (06:57→17:16)
[2018-12-28] MEDS: PCA shift volume MISC SCH (07:00)
--- NOTE | 2018-12-28 07:34 | NUR ---
HAND-OFF: Report given to WINDY WADE.
--- NOTE | 2018-12-28 07:37 | NUR ---
NURSE NOTES: Received report from SHERI Elliott. Rounding done with outgoing nurse. Patient is a/o x4 and having breakfast. Patient's right knee surgical site dressing is dry and intact. Left AC IV site is intact. Patient c/o pain 8/10 and pain medicine will be given as MD ordered. Bed in lowest position, call light within reach. Will continue to monitor.
[2018-12-28 08:00] VITALS: BP 140/74
[2018-12-28] MEDS: Losartan 50mg tab ORAL SCH (08:34)
[2018-12-28] MEDS: Docusate Sod/Senna tab ORAL SCH ×2 (08:34→17:16)
[2018-12-28] MEDS: Docusate 100mg cap ORAL SCH ×3 (08:34→17:16)
[2018-12-28] MEDS: Spironolactone 50mg tab ORAL SCH (08:34)
[2018-12-28] MEDS: Enoxaparin 40mg Inj SUBQ SCH (08:39)
[2018-12-28 12:00] VITALS: BP 153/63
--- NOTE | 2018-12-28 12:34 | General Progress Note ---
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 incentive spirometry 2. Lovenox 3. PT evaluation and therapy 4. Hydration 5. Pain management 6. awaiting placement Subjective Allergies: Coded Allergies: CODEINE (Verified Adverse Reaction, Severe, severe abdominal discomfort, ) Subjective pain otherwise same dc planning noted Objective Last 24 Hour Vital Signs Date Time Temp Pulse Resp B/P (MAP) Pulse Ox O2 Delivery O2 Flow Rate FiO2 12/28/18 08:34 140/74 12/28/18 08:34 86 140/74 12/28/18 08:00 17 12/28/18 08:00 98.0 86 17 140/74 (96) 98 12/28/18 04:00 99.0 87 17 142/72 (95) 96 12/28/18 04:00 20 12/28/18 00:00 99.2 90 20 139/81 (100) 94 12/28/18 00:00 20 12/27/18 21:00 Room Air 12/27/18 20:00 99.5 89 20 155/68 (97) 95 12/27/18 20:00 20 12/27/18 16:01 19 12/27/18 16:00 98.7 86 19 124/56 (78) 95 12/27/18 16:00 19 Intake and Output 12/27/18 12/28/18 19:00 07:00 Intake Total 300 ml 360 ml Balance 300 ml 360 ml Intake Oral 300 ml 360 ml # Voids 2 4 Height (Feet): 5 Height (Inches): 3.50 Weight (Pounds): 203 Objective WDWN NAD clear breath sounds bilaterally without rhonchi or wheeze [id number] without MRG NABS nontender no HSM no CCE nonfocal Ammon Ramos MD December 28, 2018 12:34
[2018-12-28] MEDS ORDERED: NS 500ML ONE (14:36)
--- NOTE | 2018-12-28 15:54 | NUR ---
CHARGE NURSE NOTE: Last labs done on 12/26/18. WBC 16.5, increasing. was called and asked if he wants to recheck blood tests and order antibiotics.
[2018-12-28 16:00] VITALS: BP 133/70
[2018-12-28] MEDS: HYDROcodone/Acetamin 5/325 tab ORAL PRN ×2 (16:00→21:16)
[2018-12-28 16:38] LABS: BASOPHILS % (AUTO) 1.2 % (0.0-2.0); EOSINOPHILS % (AUTO) 0.7 % (0.0-3.0); HEMATOCRIT 25.3 % (37.0-47.0); HEMOGLOBIN 8.9 G/DL (12.0-16.0); LYMPHOCYTES % (AUTO) 21.9 % (20.0-45.0); MEAN CORPUSCULAR VOLUME 77 FL (80-99); MONOCYTES % (AUTO) 10.5 % (1.0-10.0); NEUTROPHILS % (AUTO) 65.6 % (45.0-75.0); PLATELET COUNT 252 K/UL (150-450); RED BLOOD COUNT 3.28 M/UL (4.20-5.40); RED CELL DISTRIBUTION WIDTH 13.6 % (11.6-14.8); WHITE BLOOD COUNT 14.5 K/UL (4.8-10.8)
[2018-12-28 17:03] LABS: ALANINE AMINOTRANSFERASE 24 U/L (12-78); ALBUMIN 2.5 G/DL (3.4-5.0); ALBUMIN/GLOBULIN RATIO 0.6 (1.0-2.7); ALKALINE PHOSPHATASE 96 U/L (46-116); ANION GAP 7 mmol/L (5-15); ASPARTATE AMINO TRANSFERASE 29 U/L (15-37); BILIRUBIN,TOTAL 0.6 MG/DL (0.2-1.0); BLOOD UREA NITROGEN 12 mg/dL (7-18); CALCIUM 8.8 MG/DL (8.5-10.1); CARBON DIOXIDE 30 MMOL/L (21-32); CHLORIDE 99 MMOL/L (98-107); CREATININE 0.7 MG/DL (0.55-1.30); POTASSIUM 4.1 MMOL/L (3.5-5.1); SODIUM 136 MMOL/L (136-145)
--- NOTE | 2018-12-28 17:42 | NUR ---
NURSE NOTES: Patient did not have BM for 6 days. MOM was given in the morning and it did not work. Dr. Ramos was notified and ordered Dulcolax 5 mg daily prn and fleet enema daily prn. Noted and carried out.
[2018-12-28] MEDS ORDERED: Bisacodyl EC 5mg tab ORAL PRN (18:15)
[2018-12-28] MEDS ORDERED: Fleet's Enema 133ml RECTAL PRN (18:24)
--- NOTE | 2018-12-28 18:40 | NUR ---
NURSE NOTES: Patient refused doing edema. Pt stat waiting 1 more day. Will be endorsed to manager shift nurse.
--- NOTE | 2018-12-28 19:16 | NUR ---
HAND-OFF: Report given to SHERI Bravo. Patient is stable. Addendum: 12/30/18 at 0755 by Susannah Casas RN ADDENDUM Endorsed to cnc machinist 2nd shift nurse regarding enema.
--- NOTE | 2018-12-28 19:18 | NUR ---
NURSE NOTES: Report taken from SHERI Farnsworth. Pateint is awake and in bed, A&Ox4. No signs of distress on room air. States that she is having some pain central to her R knee, 01/03. Able to ambulate with walker present in room. Patient has not had a bowel movement since 12/21, stated that she would like the ordered enema tomorrow if not able to go tonight. IV site c/d/i and patent, saline locked. Surgical site c/d/i. Awaiting placement by CM for rehab. Bed in lowest position, call light within reach.
[2018-12-28 20:00] VITALS: BP 133/77
[2018-12-28] MEDS: Atorvastatin 80mg tab ORAL SCH (21:18)
[2018-12-29] VITALS: BP 128/76
[2018-12-29] MEDS: HYDROcodone/Acetamin 5/325 tab ORAL PRN ×4 (03:49→19:56)
[2018-12-29 04:15] VITALS: BP 131/82
[2018-12-29] MEDS: GlipiZIDE 5mg tab ORAL SCH ×2 (06:05→17:50)
[2018-12-29] MEDS: NovoLOG Insulin Flexpen SUBQ SCH ×4 (06:10→20:34)
--- NOTE | 2018-12-29 07:37 | NUR ---
HAND-OFF: Report given to SHERI Matias. Patient is in bed and fatigued. Minor complaints of pain, VS stable.
[2018-12-29 08:00] VITALS: BP 150/85
--- NOTE | 2018-12-29 08:00 | NUR ---
NURSE NOTES: Received report from Lawrence WADE, pt a/a/o x4 laying in bed with no signs of distress or other issues at this time. IV on the left AC gauge#33 heplock. surgical dressing dry and intact. pt on a CCHO medium diet, pt is able to tolerated well with no signs n/v. call light within reach, bed in lowest position. side rales up x2. I will f/u as needed.
[2018-12-29] MEDS: Docusate Sod/Senna tab ORAL SCH ×2 (08:56→17:50)
[2018-12-29] MEDS: Losartan 50mg tab ORAL SCH (08:56)
[2018-12-29] MEDS: Enoxaparin 40mg Inj SUBQ SCH (08:56)
[2018-12-29] MEDS: Docusate 100mg cap ORAL SCH ×3 (08:57→17:50)
[2018-12-29] MEDS: Spironolactone 50mg tab ORAL SCH (08:58)
--- NOTE | 2018-12-29 09:14 | General Progress Note ---
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 incentive spirometry 2. Lovenox 3. PT evaluation and therapy 4. Hydration 5. Pain management 6. awaiting placement Subjective Allergies: Coded Allergies: CODEINE (Verified Adverse Reaction, Severe, severe abdominal discomfort, ) Subjective pain constipation dc planning noted Objective Last 24 Hour Vital Signs Date Time Temp Pulse Resp B/P (MAP) Pulse Ox O2 Delivery O2 Flow Rate FiO2 12/29/18 08:58 85 150/85 12/29/18 08:56 150/85 12/29/18 08:00 97.9 85 18 150/85 (106) 98 12/29/18 04:15 98.6 75 18 131/82 (98) 94 12/29/18 00:00 98.2 71 18 128/76 (93) 95 12/28/18 21:00 Room Air 12/28/18 20:00 98.7 80 18 133/77 (95) 94 12/28/18 16:00 99.5 79 18 133/70 (91) 97 12/28/18 12:00 98.1 85 19 153/63 (93) 93 12/28/18 12:00 19 Intake and Output 12/28/18 12/29/18 19:00 07:00 Intake Total 480 ml Output Total 1 ml Balance 479 ml Intake Oral 480 ml Output Urine Total 1 ml # Voids 2 Laboratory Tests 12/28/18 16:20: White Blood Count 14.5H, Red Blood Count 3.28L, Hemoglobin 8.9L, Hematocrit 25.3L, Mean Corpuscular Volume 77L, Mean Corpuscular Hemoglobin 27.1, Mean Corpuscular Hemoglobin Concent 35.2, Red Cell Distribution Width 13.6, Platelet Count 252, Mean Platelet Volume 5.9L, Neutrophils (%) (Auto) 65.6, Lymphocytes ( %) (Auto) 21.9, Monocytes (%) (Auto) 10.5H, Eosinophils (%) (Auto) 0.7, Basophils (%) (Auto) 1.2, Sodium Level 136, Potassium Level 4.1, Chloride Level 99, Carbon Dioxide Level 30, Anion Gap 7, Blood Urea Nitrogen 12, Creatinine 0.7 , Estimat Glomerular Filtration Rate > 60, Glucose Level 275H, Calcium Level 8.8 , Total Bilirubin 0.6, Aspartate Amino Transf (AST/SGOT) 29, Alanine Aminotransferase (ALT/SGPT) 24, Alkaline Phosphatase 96, Total Protein 6.7, Albumin 2.5L, Globulin 4.2, Albumin/Globulin Ratio 0.6L Height (Feet): 5 Height (Inches): 3.50 Weight (Pounds): 203 Objective WDWN NAD clear breath sounds bilaterally without rhonchi or wheeze [id number] without MRG NABS nontender no HSM no CCE nonfocal Ammon Ramos MD December 29, 2018 09:14
[2018-12-29 12:00] VITALS: BP 144/79
[2018-12-29 16:00] VITALS: BP 144/80
--- NOTE | 2018-12-29 19:30 | NUR ---
NURSE NOTES: Report taken from SHERI Matias. Patient is awake and in bed, A&Ox4. No signs of distress on room air. She does have some moderate pain, 5/10, no radiating symptoms, circulation/sensation good. Surgical site c/d/i, patient does not want the dressing changed this evening because she states that currently it is comfortable, no saturation present. No further skin issues present. IV site c/d/i and patent, no fluids running. Still awaiting placement at Rehab. Bed in lowest position, call light within reach.
--- NOTE | 2018-12-29 19:48 | NUR ---
HAND-OFF: Report given to Lawrence WADE. pt in stable condition.
[2018-12-29 20:00] VITALS: BP 138/87
[2018-12-29] MEDS: Atorvastatin 80mg tab ORAL SCH (20:39)
[2018-12-30] VITALS: BP 147/74
[2018-12-30] MEDS: HYDROcodone/Acetamin 5/325 tab ORAL PRN ×4 (03:49→20:16)
[2018-12-30 04:02] VITALS: BP 142/77
[2018-12-30] MEDS: GlipiZIDE 5mg tab ORAL SCH ×2 (05:58→17:36)
[2018-12-30] MEDS: NovoLOG Insulin Flexpen SUBQ SCH ×4 (06:02→20:26)
--- NOTE | 2018-12-30 07:21 | NUR ---
NURSE NOTES: BEDSIDE ROUNDS DONE WITH NIGHT RN(DIANNE),PATIENT AWAKE A/OX 4,ROOM AIR,CLAIMS SHE DONT FEEL GOOD TODAY BECAUSE OF PAIN,(CURRENTLY MEDICATED AT 0349)EXPLAINED TO GIVE DUE PAIN MED IN AN HOUR,PATIENT AGREED.RIGHT KNEE DRSNG.C/D/I.WITH GOOD NEURO VASCULAR CIRCULATION ON BLE.HEPLOCK INTACT.PLAN OF CARE FOR THE DAY DISCUSSED AND WITH UNDERSTANDING.
--- NOTE | 2018-12-30 07:23 | NUR ---
HAND-OFF: Report given to SHERI Hanna. Patient awake, fatigued. VS stable. .
[2018-12-30 08:00] VITALS: BP 153/68
--- NOTE | 2018-12-30 08:18 | General Progress Note ---
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 incentive spirometry 2. Lovenox 3. PT evaluation and therapy 4. Hydration 5. Pain management 6. awaiting placement Subjective Allergies: Coded Allergies: CODEINE (Verified Adverse Reaction, Severe, severe abdominal discomfort, ) Subjective pain stable constipation improved dc planning noted Objective Last 24 Hour Vital Signs Date Time Temp Pulse Resp B/P (MAP) Pulse Ox O2 Delivery O2 Flow Rate FiO2 12/30/18 08:00 97.1 81 20 153/68 (96) 98 12/30/18 07:20 Room Air 12/30/18 04:02 98.1 81 18 142/77 (98) 95 12/30/18 00:00 98.2 69 18 147/74 (98) 96 12/29/18 21:00 Room Air 12/29/18 20:00 98.2 85 18 138/87 (104) 95 12/29/18 16:00 98.0 75 18 144/80 (101) 95 12/29/18 14:42 98.0 12/29/18 12:00 98.2 77 18 144/79 (100) 98 12/29/18 09:00 Room Air 12/29/18 08:58 85 150/85 12/29/18 08:56 150/85 Intake and Output 12/29/18 12/30/18 19:00 07:00 Intake Total 500 ml 750 ml Balance 500 ml 750 ml Intake Oral 500 ml 750 ml # Voids 3 Height (Feet): 5 Height (Inches): 3.50 Weight (Pounds): 203 Objective WDWN NAD clear breath sounds bilaterally without rhonchi or wheeze [id number] without MRG NABS nontender no HSM no CCE nonfocal Ammon Ramos MD December 30, 2018 08:18
[2018-12-30] MEDS: Docusate Sod/Senna tab ORAL SCH ×2 (08:28→18:03)
[2018-12-30] MEDS: Docusate 100mg cap ORAL SCH ×3 (08:28→18:03)
[2018-12-30] MEDS: Spironolactone 50mg tab ORAL SCH (08:29)
[2018-12-30] MEDS: Enoxaparin 40mg Inj SUBQ SCH (08:36)
[2018-12-30] MEDS: Losartan 50mg tab ORAL SCH (08:36)
--- NOTE | 2018-12-30 11:14 | General Surgery Progress Note ---
General Surgery-Progress Note Subjective Procedure Performed Right TKR Symptoms: improved Objective Last 24 Hour Vital Signs Date Time Temp Pulse Resp B/P (MAP) Pulse Ox O2 Delivery O2 Flow Rate FiO2 12/30/18 08:36 153/68 12/30/18 08:28 81 153/68 12/30/18 08:00 97.1 81 20 153/68 (96) 98 12/30/18 07:20 Room Air 12/30/18 04:02 98.1 81 18 142/77 (98) 95 12/30/18 00:00 98.2 69 18 147/74 (98) 96 12/29/18 21:00 Room Air 12/29/18 20:00 98.2 85 18 138/87 (104) 95 12/29/18 16:00 98.0 75 18 144/80 (101) 95 12/29/18 14:42 98.0 12/29/18 12:00 98.2 77 18 144/79 (100) 98 I&O Intake and Output 12/29/18 12/30/18 19:00 07:00 Intake Total 500 ml 750 ml Balance 500 ml 750 ml Intake Oral 500 ml 750 ml # Voids 3 Dressing: dry Wound: clean Drains: none Extremities: edema Additional Comments Right knee shown mild swelling as expected. pulses present and good cap refill. Plan Additional Comments Dr. Ramos following. Pending rehab placement. Mateusz Matias December 30, 2018 11:14
[2018-12-30 11:30] VITALS: BP 159/85
--- NOTE | 2018-12-30 14:56 | NUR ---
CASE MANAGEMENT:REVIEW 12/30/18 SI: POD #6 S/P RT KNEE 98.3 68 21 159/85 100% ON RA IS: PHOTOGRAMMETRIST DILAUDID ATENOLOL PO QD COZAAR PO QD ALDACTONE PO QD LOVENOX SQ QD : MED/SURG STATUS 3 EAST PLAN: PLAN IS FOR PATIENT TO GO TO REHAB UPON DISCHARGE ~ WAITING FOR AUTHORIZATION
--- NOTE | 2018-12-30 14:58 | NUR ---
8DISCHARGE PLANNING SPOKE WITH CELIA AT [facility] WHO STATED THEY ARE STILL WAITING FOR AUTHORIZATION FROM [employer] CALLED [employer] QUALIFICATION ENGINEER ARTUR WHO SAID [facility] HAS BEEN APPROVED. ASKED ARTUR [facility] BECAUSE THE AUTHORIZATION NEEDS TO GO DIRECTLY TO THEM
[2018-12-30 15:28] VITALS: BP 120/56
--- NOTE | 2018-12-30 19:45 | NUR ---
HAND-OFF: Report given to anju carter rn..
[2018-12-30 20:00] VITALS: BP 129/75
[2018-12-30] MEDS: Atorvastatin 80mg tab ORAL SCH (20:19)
--- NOTE | 2018-12-30 20:46 | NUR ---
NURSE NOTES: Pt resting in bed; no SOB; dressing on rt knee dry and intact; safety precautions in place; bedside table and call light within reach will continue to monitor
[2018-12-31] VITALS: BP 145/85
[2018-12-31 04:00] VITALS: BP 170/97
[2018-12-31] MEDS: GlipiZIDE 5mg tab ORAL SCH (06:07)
[2018-12-31] MEDS: NovoLOG Insulin Flexpen SUBQ SCH ×2 (06:10→12:26)
[2018-12-31 08:00] VITALS: BP 159/84
--- NOTE | 2018-12-31 08:18 | General Progress Note ---
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 incentive spirometry 2. Lovenox 3. PT evaluation and therapy 4. Hydration 5. Pain management 6. awaiting placement Subjective Allergies: Coded Allergies: CODEINE (Verified Adverse Reaction, Severe, severe abdominal discomfort, ) Subjective dc planning noted Objective Last 24 Hour Vital Signs Date Time Temp Pulse Resp B/P (MAP) Pulse Ox O2 Delivery O2 Flow Rate FiO2 12/31/18 04:00 98.7 86 17 170/97 (121) 96 12/31/18 00:00 98.0 72 16 145/85 (105) 97 12/30/18 21:00 Room Air 12/30/18 20:00 98.3 79 18 129/75 (93) 96 12/30/18 15:28 97.4 83 19 120/56 (77) 94 12/30/18 11:30 98.3 68 21 159/85 (109) 100 12/30/18 08:36 153/68 12/30/18 08:28 81 153/68 Intake and Output 12/30/18 12/31/18 18:59 06:59 Intake Total 1020 ml 650 ml Balance 1020 ml 650 ml Intake Oral 1020 ml 300 ml Other 350 ml # Voids 3 2 Height (Feet): 5 Height (Inches): 3.50 Weight (Pounds): 203 Objective WDWN NAD clear breath sounds bilaterally without rhonchi or wheeze [id number] without MRG NABS nontender no HSM no CCE nonfocal Ammon Ramos MD December 31, 2018 08:18
[2018-12-31] MEDS: Docusate Sod/Senna tab ORAL SCH (08:48)
[2018-12-31] MEDS: Losartan 50mg tab ORAL SCH (08:48)
[2018-12-31] MEDS: Docusate 100mg cap ORAL SCH ×2 (08:49→13:00)
[2018-12-31] MEDS: Spironolactone 50mg tab ORAL SCH (08:49)
[2018-12-31] MEDS: Enoxaparin 40mg Inj SUBQ SCH (08:54)
[2018-12-31] MEDS ORDERED: ACETAMINOPHEN325 M1 ORAL (10:47)
[2018-12-31] MEDS ORDERED: BISACODYL5 MG ORAL (10:48)
[2018-12-31] MEDS ORDERED: PERI-COLACE1 EA ORAL (10:50)
[2018-12-31] MEDS ORDERED: DOCUSATE SODIU100 M2 ORAL (10:51)
[2018-12-31] MEDS ORDERED: LOVENOX10 M4 SUBQ (10:52)
[2018-12-31] MEDS ORDERED: FLEET ENEMA133 ML RECTAL (10:54)
[2018-12-31] MEDS ORDERED: NEURONTIN100 MG ORAL (10:56)
[2018-12-31] MEDS ORDERED: NORCO 5-325 TA1 EACH ORAL ×2 (10:58→10:59)
--- NOTE | 2018-12-31 10:59 | NUR ---
PT NOTE Attempted to see patient for PT treatment. Patient declining to participate with PT at this time, states she is waiting to wash up, scheduled to be discharged to ARU later today. Will follow up in p.m.
[2018-12-31] MEDS ORDERED: NOVOLOG100 UNIT/5 SUBQ (11:01)
[2018-12-31] MEDS ORDERED: COZAAR50 MG ORAL (11:01)
[2018-12-31] MEDS ORDERED: MILK OF MA2400 MG/10 ORAL (11:03)
[2018-12-31] MEDS ORDERED: RESTORIL7.5 MG ORAL (11:04)
[2018-12-31 11:30] VITALS: BP_SYST 138; BP_DIAS 81; BP_DIAS 89
--- NOTE | 2018-12-31 13:35 | NUR ---
NURSE NOTES:REPORT GIVEN TO MAYRA WADE RE:TRANSFER REPORT TP [facility].
--- NOTE | 2018-12-31 13:37 | NUR ---
RD ASSESSMENT & RECOMMENDATIONS SEE CARE ACTIVITY FOR COMPLETE ASSESSMENT DAILY ESTIMATED NEEDS: Needs based on Surgery, DM, obese 63kg adj 25-30 kcals/kg 7499-1844 total kcals 1-1.5 g protein/kg 63-95 g total protein 25-30 mL/kg 5252-3875 total fluid mLs NUTRITION DIAGNOSIS: Altered nutrition related lab values r/t diabetes as evidenced by elev BG (275), elev POC (200-300's), pt on oral and IM hypoglycemics. CURRENT DIET: CCHO LOW PO DIET RECOMMENDATIONS: Maintain CCHO LOW diet ADDITIONAL RECOMMENDATIONS: 1) Recalibrate bed scale for accurate CBW 2) Surgical wound healing: add MAMTA BID + VIT C 250mg daily 3) Updated A1C as able
--- NOTE | 2018-12-31 14:35 | NUR ---
CHARGE NURSE NOTES: HELPLOCK discontinued/removed. Pt's belongings signed & sent to pt including the walker. pt discharged at 1418, stable & walked to the [facility] independently w/ FWW.
--- NOTE | 2019-01-01 13:15 | Discharge Summary ---
Discharge Summary Hospital Course Date of Admission Dec 23, 2018 at 05:43 Date of Discharge December 31, 2018 at 14:18 Admitting Diagnosis end stage degenerative joint disease right knee Reason for Hospitalization: elective surgery JOSE Jang is a 58 year old female who was admitted on Dec 23, 2018 at 05: 43 for End Stage Degenerative Disease Right Knee. Patient was admitted for elective surgery Consultations Dr Ramos IM Procedures s/p 12/23/[address] Méndez Resurfacing arthroplasty right knee using Chary natural knee with a 0 cemented all-polyethylene patella and a size 1 ingrowth femur and tibia with a congruent 9 mm polyethylene component on the tibial side. Lateral release for patellar realignment Hospital Course status post surgery course of recovery uneventful initially IV fluids s/p perioperative antibiotics neurovascular status closely monitored, stable incision clean , dry and intact initially Hemovac drain, output clsoely monitored, Hemovac dc 12/25 pain management addressed ; pain controlled hemodynamically stable ambulated with PT with FWW DVT prophylaxis provided use of incentive spirometry was encouraged while in the bed fall precautions maintained; safe for ambulation tolerated diet , IV fluids discontinued GI prophylaxis provided antiemetics were on board as needed voided freely bowel regimen instituted patient was stable for transfer to acute rehabilitation at at [facility] FWW provided upon discharge discharge instructions provided FINAL DIAGNOSES End-stage degenerative joint disease right knee Tricompartmental arthritis 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 due to complete loss of medial compartment joint space s/p Right TKR Discharge Medications Continued Medications: Acetaminophen* (Acetaminophen 325MG Tablet*) 325 Mg Tablet 650 MG ORAL Q4H PRN for fever & mild pain, TAB (This prescription has been renewed) Atenolol* (Tenormin*) 50 Mg Tablet 50 MG ORAL DAILY, TAB (This prescription has been renewed) Atorvastatin Calcium* (Atorvastatin Calcium*) 40 Mg Tablet 40 MG ORAL BEDTIME, TAB (This prescription has been renewed) Bisacodyl* (Dulcolax*) 5 Mg Tablet.dr 5 MG ORAL DAILY PRN for Constipation, #10 TAB 0 Refills (This prescription has been renewed) Docusate Sod/Senna (Docusate Sodium-Senna Tablet) 1 Each Tablet 1 CAP ORAL TWICE A DAY, #10 CAP 0 Refills (This prescription has been renewed) Docusate Sodium (Docusate Sodium) 100 Mg Tablet 100 MG ORAL TID, #60 TAB 0 Refills (This prescription has been renewed) Enoxaparin* (Lovenox*) 40 Mg/0.4 Ml Inj 40 MG SUBQ DAILY (This prescription has been renewed) Gabapentin* (Neurontin*) 100 Mg Capsule 100 MG ORAL BEDTIME, #15 CAP 0 Refills (This prescription has been renewed) Glipizide* (Glipizide*) 5 Mg Tablet 20 MG ORAL BIDAC, TAB (This prescription has been renewed) Hydrocodone Bit/Acetaminophen 5-325* (Sunol 5-325*) 1 Each Tablet 1 TAB ORAL Q4H PRN for Moderate Pain (Pain Scale 4-6), #10 TAB 0 Refills (This prescription has been renewed) Hydrocodone Bit/Acetaminophen 5-325* (Sunol 5-325*) 1 Each Tablet 22 TAB ORAL Q4H PRN for Severe Pain (Pain Scale 7-10), #12 TAB 0 Refills (This prescription has been renewed) Insulin Aspart (Novolog) 100 Unit/1 Ml Vial SUBQ BEFORE MEALS AND HS PRN for sliding sscale (This prescription has been renewed) Losartan Potassium* (Losartan Potassium*) 50 Mg Tablet 50 MG ORAL DAILY, TAB (This prescription has been renewed) Magnesium Hydroxide* (Milk Of Magnesia*) 2,400 Mg/10 Ml Oral.susp 30 ML ORAL DAILY PRN for Constipation, ML (This prescription has been renewed) Na Phos,M-B/Na Phos,Di-Ba* (Fleet Enema*) 133 Ml Enema 133 ML RECTAL DAILY, ML 0 Refills (This prescription has been renewed) Spironolactone* (Spironolactone*) 100 Mg Tablet 100 MG ORAL DAILY, TAB (This prescription has been renewed) Temazepam* (Restoril*) 7.5 Mg Capsule 7.5 MG ORAL BEDTIME, #10 CAP 0 Refills (This prescription has been renewed) Discontinued Medications: Hydrocodone Bit/Acetaminophen 5-325* (Sunol 5-325*) 1 Each Tablet 1 TAB ORAL Q4H PRN for For Pain, #10 TAB 0 Refills Losartan Potassium* (Cozaar*) 50 Mg Tablet 50 MG ORAL DAILY, TAB Discharge Condition Upon Discharge: stable Discharge Disposition Patient was discharged to [facility] Discharge Instructions Discharge Instructions Special Instructions I have been assigned to complete a D/C Summary on this account. I was not involved in the patient management Brenda Decker NP January 01, 2019 13:15
== END 2018-12-31 14:18 | disposition short-term general hospital (02) | DRG 470 ==
LOC: SDSOVERFLO 05:43 → 3E 11:35
PROC: 0SRC0J9 Replacement of Right Knee Joint with Synthetic Substitute, Cemented, Open Approach (ICD-10-PCS; principal; 2018-12-23 07:30)
PROC: 0MNN0ZZ Release Right Knee Bursa and Ligament, Open Approach (ICD-10-PCS; principal; 2018-12-23 07:30)
DX: M17.31 Unilateral post-traumatic osteoarthritis, right knee (principal); M21.161 Varus deformity, not elsewhere classified, right knee; I10 Essential (primary) hypertension; E78.00 Pure hypercholesterolemia, unspecified; E11.9 Type 2 diabetes mellitus without complications; E66.3 Overweight; Z68.35 Body mass index [BMI] 35.0-35.9, adult; K59.00 Constipation, unspecified; M17.11 Unilateral primary osteoarthritis, right knee
CPT/HCPCS: 36415; 80053; 82962; 85025; 86850; 86900; 86901; 87081; 87086; 94003; 94150; C9399; J1815; J2405; J2765